=== PATIENT | female | born 1985 | race Caucasian/White ===

== ENCOUNTER 2020-10-15 08:36 | Inpatient (IN) ==
[2020-10-15] MEDS ORDERED: OXYTOCIN 30 UNITS/500 ML BAG IV PRN ×3 (09:13→18:45)
--- NOTE | 2020-10-15 09:27 | History & Physical Report ---
Date of Service October 15, 2020 Assessment & Plan (1) Spontaneous rupture of amniotic membranes: 34 yo at 38,3 wks with SROM at term VSS Afebrile GBS neg FHR reassuring Discussed augmentation with Pitocin, decrease risk of intraamniotic infection, she agreed Continue to monitor Epidural for pain Admission and Anticipated Discharge Date Admission Date: October 15, 2020 History of Present Illness Primary Care Provider: NO PCP 34 yo at 38.3 wks LOF since 0520 am Trickling since then Clear, no blood Contractions started after LOF, every 6-12 min, pain 8/10 +FM's No problems of EFW was 6.5 lb last week in office GBS neg No symptoms of COVID 19 Patient History Social History (Updated 10/15/20 @ 09:25 by Jorge Clark MD) Smoking Status: Never smoker Hx Alcohol Use: No Hx Substance Use: No CAN RECONDITIONER History No h/o STD's Review of Systems All systems reviewed & are unremarkable except as noted in HPI & below Physical Exam Constitutional: WD/WN, vitals as above well developed Comfortable Gastrointestinal (Abdomen): normal bowel sounds, soft, nontender, no hepatosplenomegaly (Enrique 7-8 lb) Genitourinary: normal external appearance OB Exam Abdomen: + vertex Manual OB Exam: + cervical dilation 2 cm, + cervical effacement 70%, + station - 1 and + amniotic fluid (clear, nitrazine+, amnisure +) OB Exam Monitor Tracing: + external uterine monitor used and + category I Results & Data ([facility]) Vital Signs (Past 12 Hours) Vital Signs Pulse BP 10/15/20 09:05 70 111/69
[2020-10-15 09:54] LABS: Hematocrit (blood only) 34.8 % (37-47); Hemoglobin 11.8 g/dL (12.0-16.0); Mean Corpuscular Hemoglobin 28.5 pg (25-34); Mean Corpuscular Hgb Conc 33.9 g/dL (32-36); Mean Corpuscular Volume 84.1 fL (80-100); Mean Platelet Volume 10.2 fL (7.4-10.4); Platelet Count 368 K/uL (130-400); RDW Coefficient of Variation 13.2 % (11.5-14.5); RDW Standard Deviation 40.1 fL (36.4-46.3); Red Blood Count 4.14 M/uL (4.2-5.4); White Blood Count 11.78 K/uL (4.8-10.8)
[2020-10-15] MEDS: LACTATED RINGER'S 1,000 ML IV PRN ×2 (10:34→12:24)
[2020-10-15] MEDS ORDERED: fentaNYL citrate 100 MCG/2 ML VIAL ONE (11:42)
[2020-10-15] MEDS ORDERED: BUPIVACAINE 0.25% 30 ML VIAL ONE (11:42)
[2020-10-15] MEDS ORDERED: SODIUM CHLORIDE 0.9% INJ 10 ML VIAL ONE (11:42)
[2020-10-15] MEDS ORDERED: ePHEDrine sulfate 50 MG/ML AMP ONE (11:42)
[2020-10-15] MEDS ORDERED: fentaNYL 2MCG/ML ROPIVACAINE 1.25MG/ML 100 ML BAG EPI ONE (11:43)
--- NOTE | 2020-10-15 12:36 | Anesthesiology Consultation ---
Date of Service October 15, 2020 Assessment & Plan (1) Encounter for pre-operative examination: Chart Review Chart Review: Patient NOT seen in Pre Admission Testing and Acceptable Risk for Labor Epidural Consults Requested none ASA ASA2 Proposed Anesthesia Anesthesia Type: Labor Epidural Risk / Benefits Reviewed With: PT / POA / Parent / Guardian, Accepts Plan and Informed Consent Obtained History Height/Weight Height: 5 ft 3 in Weight: 95.254 kg Allergies Allergy/AdvReac Type Severity Reaction Status Date / Time morris Allergy Hives Verified 10/15/20 09:31 pollen extracts Allergy Sneezing Verified 10/15/20 09:32 Medications Home Medications Medication Instructions Recorded Confirmed Last Taken prenat.vits,kinga,mhq-fxbx-jnvuk 1 tab PO DAILY 10/15/20 10/15/20 10/14/20 08:00 [ Vitamin] Active Medications Generic Name Dose Route Start Last Admin Trade Name Freq PRN Reason Stop Dose Admin Lactated Ringer's 1,000 mls @ 150 mls/hr 10/15/20 09:13 10/15/20 12:24 Lr IV 10/17/20 09:12 150 mls/hr .[id number] PRN Administration L&D Protocol Protocol Oxytocin 30 units in 500 mls @ 8 mls/hr 10/15/20 09:18 10/15/20 12:05 Pitocin IV 10/17/20 09:17 0.48 units/hr .Q24H PRN 8 mls/hr Labor Induction/Augmentation Titration Protocol 0.48 UNITS/HR NPO Date Last Intake of Fluids: 10/15/20 Time Last Intake of Fluids: 11:00 Date Last Intake of Solids: 10/14/20 Time Last Intake of Solids: 22:00 Past Medical History Medical History No pertinent past medical history Exercise / Class Metabolic Activity II 4-5 Yardwork/Stairs/Walk up hill Past Surgical History Surgical History H/O breast augmentation 2011 Past Anesthesia History No Hx of Anesthesia Complications and No Family Hx of Anesthesia Complications History of PONV No Hx of PONV and No Hx of Motion Sickness Social History Smoking Status: Never smoker Hx Alcohol Use: No Hx Substance Use: No Physical Exam Vital Signs Last Vital Signs Temp 37.1 C 10/15/20 09:17 Pulse 86 10/15/20 12:34 Resp 20 10/15/20 09:17 BP 113/68 10/15/20 12:34 Pulse Ox 81 L 10/15/20 12:29 ENMT Mouth: no dentition abnormality Thyromental Distance: > or= 3.5 Finger Breadths Mallampati Class: II Neck normal visual inspection Respiratory normal respiratory effort Auscultation: lungs clear to auscultation bilaterally Cardiovascular Rate/Rhythm: regular rate and regular rhythm Psychiatric Orientation: alert Testing Laboratory Results 10/15/20 09:39
[2020-10-15] MEDS ORDERED: diphenhydrAMINE 50 MG/ML VIAL IV PRN (12:37)
[2020-10-15] MEDS ORDERED: ONDANSETRON INJ 2 MG/ML 2 ML VIAL IV PRN (12:37)
[2020-10-15] MEDS ORDERED: NALOXONE HCL 0.4 MG/1 ML VIAL/CARP IV PRN (12:37)
[2020-10-15] MEDS ORDERED: fentaNYL 2MCG/ML ROPIVACAINE 1.25MG/ML 100 ML BAG EPI PRN (12:37)
[2020-10-15] MEDS ORDERED: ePHEDrine sulfate 50 MG/ML AMP IV PRN (12:37)
[2020-10-15] MEDS ORDERED: NALOXONE HCL 1 MG in SODIUM CHLORIDE 0.9% 1000ML 1,000 ML IV PRN (12:37)
--- NOTE | 2020-10-15 16:36 | Obstetrical Progress Note ---
Date of Service October 15, 2020 Assessment & Plan Admission and Anticipated Discharge Date Admission Date: October 15, 2020 Subjective Late entry from 14:45 Patient is reevaluated Received epidural and comfortable now VSS Afebrile FHR categ I VE; 6-7/ 90%/ 0 Ctxs q 1-5 min, pitocin is at 12 miu/min Continue to monitor Anticipate Results & Data ([facility]) Vital Signs (Past 12 Hours) Vital Signs Temp Pulse Resp BP Pulse Ox 10/15/20 16:31 20 10/15/20 16:29 76 95 10/15/20 16:28 74 108/58 L 10/15/20 16:24 73 96 10/15/20 16:23 71 86 L 10/15/20 16:19 70 92 10/15/20 16:16 20 10/15/20 16:14 81 91 10/15/20 16:13 69 102/63 10/15/20 16:11 66 90 10/15/20 16:09 66 92 10/15/20 16:04 77 91 10/15/20 16:01 20 10/15/20 15:59 67 93 10/15/20 15:58 73 105/62 10/15/20 15:54 71 92 10/15/20 15:49 76 93 10/15/20 15:46 20 10/15/20 15:44 70 92 10/15/20 15:43 73 112/60 10/15/20 15:39 69 92 10/15/20 15:34 74 93 10/15/20 15:31 20 10/15/20 15:29 72 93 10/15/20 15:28 68 103/65 10/15/20 15:24 68 92 10/15/20 15:19 72 92 10/15/20 15:16 20 10/15/20 15:14 71 111/59 L 92 10/15/20 15:09 69 92 10/15/20 15:04 71 92 10/15/20 15:00 36.8 C 10/15/20 14:59 65 92 10/15/20 14:57 65 94/56 L 10/15/20 14:54 64 92 10/15/20 14:49 69 93 10/15/20 14:44 60 94 10/15/20 14:43 60 98/57 L 10/15/20 14:39 74 93 10/15/20 14:34 67 92 10/15/20 14:29 66 92 10/15/20 14:28 66 101/61 10/15/20 14:24 72 93 10/15/20 14:19 62 92 10/15/20 14:15 18 10/15/20 14:14 64 92 10/15/20 14:12 68 96/58 L 10/15/20 14:09 67 91 10/15/20 14:04 65 92 10/15/20 13:59 72 93 10/15/20 13:57 63 102/60 10/15/20 13:54 66 93 10/15/20 13:49 61 92 10/15/20 13:45 20 10/15/20 13:44 67 93 10/15/20 13:43 68 104/74 10/15/20 13:39 67 93 10/15/20 13:34 78 94 10/15/20 13:31 20 10/15/20 13:29 66 96 10/15/20 13:28 64 100/62 10/15/20 13:24 61 92 10/15/20 13:19 63 92 10/15/20 13:14 65 93 10/15/20 13:13 63 98/62 L 10/15/20 13:09 66 94 10/15/20 13:08 37.0 C 10/15/20 13:05 20 10/15/20 13:04 68 93 10/15/20 12:59 68 94 10/15/20 12:58 66 94 10/15/20 12:57 67 100/58 L 10/15/20 12:54 67 95 10/15/20 12:49 69 20 96 10/15/20 12:44 82 97 10/15/20 12:40 88 100/58 L 10/15/20 12:39 81 98 10/15/20 12:36 20 10/15/20 12:34 83 113/68 97 10/15/20 12:32 106 H 113/72 10/15/20 12:30 78 112/66 10/15/20 12:29 86 81 L 10/15/20 12:28 72 126/75 10/15/20 12:24 82 87 L 10/15/20 12:23 70 91 10/15/20 12:19 62 97 10/15/20 11:36 67 130/78 10/15/20 11:10 36.9 C 10/15/20 10:36 63 122/73 10/15/20 09:17 37.1 C 20 10/15/20 09:05 70 111/69
[2020-10-15] MEDS ORDERED: NURSING L&D Epidural Breakthrough Pain Update ONE (16:54)
--- NOTE | 2020-10-15 17:52 | Obstetrical Progress Note ---
Date of Service October 15, 2020 Assessment & Plan Admission and Anticipated Discharge Date Admission Date: October 15, 2020 Subjective Patient was reevaluated VE was 10/100%/+2, small caput, Patient had urge to push FHR had been categ I Had deceleration after contractions, pitocin was off and Nasal O2 and IVF bolus were started FHR recovered Has been pushing for the last 15 minutes Caput visible at introitus Continue to monitor closely Anticipate Results & Data ([facility]) Vital Signs (Past 12 Hours) Vital Signs Temp Pulse Resp BP Pulse Ox 10/15/20 17:49 84 99 10/15/20 17:44 66 91/54 L 99 10/15/20 17:39 81 100 10/15/20 17:34 58 L 96 10/15/20 17:29 52 L 93 10/15/20 17:28 56 L 95/50 L 10/15/20 17:24 61 95 10/15/20 17:19 69 96 10/15/20 17:14 68 97 10/15/20 17:13 105 H 101/56 L 10/15/20 17:09 74 96 10/15/20 17:04 74 97 10/15/20 16:59 69 97 10/15/20 16:58 76 110/68 10/15/20 16:54 70 96 10/15/20 16:49 71 97 10/15/20 16:46 20 10/15/20 16:44 65 97 10/15/20 16:43 66 113/68 10/15/20 16:39 75 96 10/15/20 16:34 76 96 10/15/20 16:31 20 10/15/20 16:29 76 95 10/15/20 16:28 74 108/58 L 10/15/20 16:24 73 96 10/15/20 16:23 71 86 L 10/15/20 16:19 70 92 10/15/20 16:16 20 10/15/20 16:14 81 91 10/15/20 16:13 69 102/63 10/15/20 16:11 66 90 10/15/20 16:09 66 92 10/15/20 16:04 77 91 10/15/20 16:01 20 10/15/20 15:59 67 93 10/15/20 15:58 73 105/62 10/15/20 15:54 71 92 10/15/20 15:49 76 93 10/15/20 15:46 20 10/15/20 15:44 70 92 10/15/20 15:43 73 112/60 10/15/21 15:39 69 92 2021 15:34 74 93 10/15/20 15:31 20 10/15/20 15:29 72 93 10/15/20 15:28 68 103/65 10/15/20 15:24 68 92 10/15/20 15:19 72 92 10/15/20 15:16 20 10/15/20 15:14 71 111/59 L 92 10/15/20 15:09 69 92 10/15/20 15:04 71 92 10/15/20 15:00 36.8 C 10/15/20 14:59 65 92 10/15/20 14:57 65 94/56 L 10/15/20 14:54 64 92 10/15/20 14:49 69 93 10/15/20 14:44 60 94 10/15/20 14:43 60 98/57 L 10/15/20 14:39 74 93 10/15/20 14:34 67 92 10/15/20 14:29 66 92 10/15/20 14:28 66 101/61 10/15/20 14:24 72 93 10/15/20 14:19 62 92 10/15/20 14:15 18 10/15/20 14:14 64 92 10/15/20 14:12 68 96/58 L 10/15/20 14:09 67 91 10/15/20 14:04 65 92 10/15/20 13:59 72 93 10/15/20 13:57 63 102/60 10/15/21 13:54 66 93 10/15/21 13:49 61 92 21 13:45 20 10/15/20 13:44 67 93 20/ 13:43 68 104/74 20/21 13:39 67 93 20/21 13:34 78 94 10/15/20 13:31 20 20 13:29 66 96 20 13:28 64 100/62 20/21 13:24 61 92 20 13:19 63 92 10/15/20 13:14 65 93 10/15/20 13:13 63 98/62 L 10/15/20 13:09 66 94 10/15/20 13:08 37.0 C 10/15/20 13:05 20 10/15/20 13:04 68 93 10/15/20 12:59 68 94 10/15/20 12:58 66 94 10/15/20 12:57 67 100/58 L 10/15/20 12:54 67 95 10/15/20 12:49 69 20 96 10/15/20 12:44 82 97 10/15/20 12:40 88 100/58 L 10/15/20 12:39 81 98 10/15/20 12:36 20 10/15/20 12:34 83 113/68 97 10/15/20 12:32 106 H 113/72 10/15/20 12:30 78 112/66 10/15/20 12:29 86 81 L 10/15/20 12:28 72 126/75 10/15/20 12:24 82 87 L 10/15/20 12:23 70 91 10/15/20 12:19 62 97 10/15/20 11:36 67 130/78 10/15/20 11:10 36.9 C 10/15/20 10:36 63 122/73 10/15/20 09:17 37.1 C 20 10/15/20 09:05 70 111/69
[2020-10-15] MEDS ORDERED: MINERAL OIL 30 ML UDC ONE (17:55)
[2020-10-15] MEDS ORDERED: MEASLES, MUMPS & RUBELLA VIRUS VIAL SQ ONE (18:45)
[2020-10-15] MEDS ORDERED: DIPHTHERIA/TETANUS/PERTUSSIS 0.5 ML SYR/VIAL IM ONE (18:45)
[2020-10-15] MEDS ORDERED: SUPERCREAM 0.870% 15 GM JAR EXT PRN (18:45)
[2020-10-15] MEDS ORDERED: ACETAMINOPHEN 325 MG TAB PO PRN (18:45)
[2020-10-15] MEDS ORDERED: HYDROCORTISONE ACETATE 25 MG SUPP PR PRN (18:45)
[2020-10-15] MEDS ORDERED: bisacodyL 10 MG SUPP PR PRN (18:45)
[2020-10-15] MEDS ORDERED: BENZOCAINE 20% AER SPR 82.5 GM CAN EXT PRN (18:45)
--- NOTE | 2020-10-15 20:24 | Anesthesiology Progress Note ---
Date of Service October 15, 2020 Anesthesia Post Procedure Vital Signs Vital Signs: Temp Pulse Resp BP Pulse Ox 10/15/20 20:12 83 129/59 L 10/15/20 19:58 93 H 122/57 L 10/15/20 19:45 18 10/15/20 19:43 91 H 111/53 L 10/15/20 19:30 16 10/15/20 19:27 90 128/63 10/15/20 19:15 18 10/15/20 18:58 36.8 C 97 H 18 117/74 10/15/20 18:45 91 H 20 106/65 10/15/20 18:43 83 100/57 L 10/15/20 18:34 68 112/56 L 10/15/20 18:28 139 H 159/122 H 10/15/20 18:14 84 97 10/15/20 18:09 105 H 99 10/15/20 18:04 91 H 99 10/15/20 17:59 75 99 10/15/20 17:58 73 95/52 L 10/15/20 17:54 96 H 98 10/15/20 17:49 84 99 10/15/20 17:44 66 91/54 L 99 10/15/20 17:39 81 100 10/15/20 17:34 58 L 96 10/15/20 17:29 52 L 93 10/15/20 17:28 56 L 95/50 L 10/15/20 17:24 61 95 10/15/20 17:19 69 96 10/15/20 17:14 68 97 10/15/20 17:13 105 H 101/56 L 10/15/20 17:10 36.7 C 20 10/15/20 17:09 74 96 10/15/20 17:04 74 97 10/15/20 16:59 69 97 10/15/20 16:58 76 110/68 10/15/20 16:54 70 96 10/15/20 16:49 71 97 10/15/20 16:46 20 10/15/20 16:44 65 97 10/15/20 16:43 66 113/68 10/15/20 16:39 75 96 10/15/20 16:34 76 96 10/15/20 16:31 20 10/15/20 16:29 76 95 10/15/20 16:28 74 108/58 L 10/15/20 16:24 73 96 10/15/20 16:23 71 86 L 10/15/20 16:19 70 92 10/15/20 16:16 20 10/15/20 16:14 81 91 10/15/20 16:13 69 102/63 10/15/20 16:11 66 90 10/15/20 16:09 66 92 10/15/20 16:04 77 91 10/15/20 16:01 20 10/15/20 15:59 67 93 10/15/20 15:58 73 105/62 10/15/20 15:54 71 92 10/15/20 15:49 76 93 10/15/20 15:46 20 10/15/20 15:44 70 92 10/15/20 15:43 73 112/60 10/15/20 15:39 69 92 10/15/20 15:34 74 93 10/15/20 15:31 20 10/15/20 15:29 72 93 10/15/20 15:28 68 103/65 10/15/20 15:24 68 92 10/15/20 15:19 72 92 10/15/20 15:16 20 10/15/20 15:14 71 111/59 L 92 10/15/20 15:09 69 92 10/15/20 15:04 71 92 10/15/20 15:00 36.8 C 10/15/20 14:59 65 92 10/15/20 14:57 65 94/56 L 10/15/20 14:54 64 92 10/15/20 14:49 69 93 10/15/20 14:44 60 94 10/15/20 14:43 60 98/57 L 10/15/20 14:39 74 93 10/15/20 14:34 67 92 10/15/20 14:29 66 92 10/15/20 14:28 66 101/61 10/15/20 14:24 72 93 10/15/20 14:19 62 92 10/15/20 14:15 18 10/15/20 14:14 64 92 10/15/20 14:12 68 96/58 L 10/15/20 14:09 67 91 10/15/20 14:04 65 92 10/15/20 13:59 72 93 10/15/20 13:57 63 102/60 10/15/20 13:54 66 93 10/15/20 13:49 61 92 10/15/20 13:45 20 10/15/20 13:44 67 93 10/15/20 13:43 68 104/74 10/15/20 13:39 67 93 10/15/20 13:34 78 94 10/15/20 13:31 20 10/15/20 13:29 66 96 10/15/20 13:28 64 100/62 10/15/20 13:24 61 92 10/15/20 13:19 63 92 10/15/20 13:14 65 93 10/15/20 13:13 63 98/62 L 10/15/20 13:09 66 94 10/15/20 13:08 37.0 C 10/15/20 13:05 20 10/15/20 13:04 68 93 10/15/20 12:59 68 94 10/15/20 12:58 66 94 10/15/20 12:57 67 100/58 L 10/15/20 12:54 67 95 10/15/20 12:49 69 20 96 10/15/20 12:44 82 97 10/15/20 12:40 88 100/58 L 10/15/20 12:39 81 98 10/15/20 12:36 20 10/15/20 12:34 83 113/68 97 10/15/20 12:32 106 H 113/72 10/15/20 12:30 78 112/66 10/15/20 12:29 86 81 L 10/15/20 12:28 72 126/75 10/15/20 12:24 82 87 L 10/15/20 12:23 70 91 10/15/20 12:19 62 97 10/15/20 11:36 67 130/78 10/15/20 11:10 36.9 C 10/15/20 10:36 63 122/73 10/15/20 09:17 37.1 C 20 10/15/20 09:05 70 111/69 Pain Intensity Abdomen: Pain Intensity: 3 Notes Mental Status: alert / awake / arousable Nausea / Vomiting: adequately controlled Pain: adequately controlled Airway Patency, RR, SpO2: stable & adequate BP & HR: stable & adequate Hydration State: stable & adequate Neuraxial Anesthesia: was administered and sensory block is resolving Anesthetic Complications: no major complications apparent and Pt Satisfied with anesthetic care
--- NOTE | 2020-10-15 21:49 | Delivery Summary ---
DATE OF OPERATION: 10/15/2020 TIME OF DELIVERY OF BABY: 6:11 p.m. DETAILS OF DELIVERY: The patient was found to be fully dilated and desired to push. She pushed for about half an hour and delivered the head without difficulty. Shoulders were delivered with minimal traction. Baby was handed off to the mother where mouth and nose were suctioned. Cord was clamped x2 and cut. Baby was vigorously crying and moving and then cord blood was obtained. Vagina and perineum were checked for lacerations. There was a small second-degree perineal laceration, which was confirmed with rectal exam. Excellent sphincter tone was noted and gloves were changed. This was repaired with 2-0 Vicryl in a running locked fashion and there was oozing on the top, which was controlled with lymyxv-sr-yxtif stitches. The placenta was found to be in the vagina, delivered spontaneous as intact and complete. Uterus was explored, found to be empty. Lower segment was cleared of all clots and debris. EBL was 200 mL. Fundus was firm. There was a small oozing on the repair, which was controlled with nuifkj-jf-wwace stitch and Aaliyah powder. Excellent hemostasis was achieved. Mom and baby tolerated the procedure well. Sponge, needle, instrument count was correct x2. Baby was a viable female , Apgars 9/9, weight is 2830 gr. No complications happened and I was present during whole procedure. I attest to the content of the Intraoperative Record and any orders documented therein. Any exceptions are noted below. MTDD
[2020-10-15] MEDS: DOCUSATE SODIUM 100 MG CAP PO SCH (21:51)
[2020-10-16] MEDS: IBUPROFEN 600 MG TAB PO PRN ×2 (03:40→15:39)
[2020-10-16 06:28] LABS: Hematocrit (blood only) 29.5 % (37-47); Hemoglobin 9.9 g/dL (12.0-16.0); Mean Corpuscular Hemoglobin 28.4 pg (25-34); Mean Corpuscular Hgb Conc 33.6 g/dL (32-36); Mean Corpuscular Volume 84.8 fL (80-100); Mean Platelet Volume 10.2 fL (7.4-10.4); Platelet Count 321 K/uL (130-400); RDW Coefficient of Variation 13.1 % (11.5-14.5); RDW Standard Deviation 39.9 fL (36.4-46.3); Red Blood Count 3.48 M/uL (4.2-5.4); White Blood Count 13.96 K/uL (4.8-10.8)
[2020-10-16] MEDS ORDERED: FERROUS SULFATE 325 MG TAB PO SCH (08:00)
[2020-10-16] MEDS: PRENATAL VITAMIN 1 TAB PO SCH (09:12)
[2020-10-16] MEDS: DOCUSATE SODIUM 100 MG CAP PO SCH ×2 (09:13→20:46)
--- NOTE | 2020-10-16 13:09 | Obstetrical Progress Note ---
Date of Service October 16, 2020 Assessment & Plan Admission and Anticipated Discharge Date Admission Date: October 15, 2020 Subjective Patient is seen and examined. She feels well, no complaints. Ambulating without dizziness Voiding without difficulty Tolerating regular diet with out N&V Bleeding is minimal No fever/ chills/ CP/ SOB/ N&V/ Leg pain Breast feeding without problems Vital Signs Temp Pulse Resp BP Pulse Ox 10/16/20 11:15 36.7 C 88 14 108/73 98 10/16/20 08:47 37 C 82 16 104/72 98 10/16/20 03:30 36.9 C 76 20 101/67 99 Lab Results 10/15/20 10/15/20 10/15/20 Range/Units 09:39 Unknown Unknown WBC 11.78 H (4.8-10.8) K/uL RBC 4.14 L (4.2-5.4) M/uL Hgb 11.8 L (12.0-16.0) g/dL Hct 34.8 L (37-47) % MCV 84.1 (80-100) fL MCH 28.5 (25-34) pg MCHC 33.9 (32-36) g/dL RDW Std Deviation 40.1 (36.4-46.3) fL RDW Coeff of Marques 13.2 (11.5-14.5) % Plt Count 368 (130-400) K/uL MPV 10.2 (7.4-10.4) fL COVID-19 Eval Order Covid19 [facility] SARS-CoV-2, RNA, NAAT NEGATIVE (NEGATIVE) 10/16/20 Range/Units 06:13 WBC 13.96 H (4.8-10.8) K/uL RBC 3.48 L (4.2-5.4) M/uL Hgb 9.9 L (12.0-16.0) g/dL Hct 29.5 L (37-47) % MCV 84.8 (80-100) fL MCH 28.4 (25-34) pg MCHC 33.6 (32-36) g/dL RDW Std Deviation 39.9 (36.4-46.3) fL RDW Coeff of Marques 13.1 (11.5-14.5) % Plt Count 321 (130-400) K/uL MPV 10.2 (7.4-10.4) fL COVID-19 Eval Order SARS-CoV-2, RNA, NAAT (NEGATIVE) PE: General: Alert, orientedx3, NAD Abd: soft, NT, fundus firm, below Umbilicus Perineum intact, Lochia rubra minimal Ext; NT, no edema AP: 34 yo s/p , ppd# 1 VSS Afebrile doing well Continue routine care All questions were answered D/C home tomorrow Results & Data ([facility]) Vital Signs (Past 12 Hours) Vital Signs Temp Pulse Resp BP Pulse Ox 10/16/20 11:15 36.7 C 88 14 108/73 98 10/16/20 08:47 37 C 82 16 104/72 98 10/16/20 03:30 36.9 C 76 20 101/67 99
[2020-10-16] MEDS ORDERED: bisacodyL 5 MG TABEC PO SCH (20:00)
[2020-10-16] MEDS: FERROUS SULFATE 325 MG TAB PO SCH (20:46)
[2020-10-17] MEDS: IBUPROFEN 600 MG TAB PO PRN (01:20)
[2020-10-17 06:35] LABS: Hematocrit (blood only) 31.6 % (37-47); Hemoglobin 10.5 g/dL (12.0-16.0)
--- NOTE | 2020-10-17 08:27 | Obstetrical Progress Note ---
Date of Service October 17, 2020 Assessment & Plan Admission and Anticipated Discharge Date Admission Date: October 15, 2020 Subjective PPD#2 doing well passing gas tolerating diet out of bed Physical Exam Constitutional: WD/WN, vitals as above comfortable abdomen soft and non- tender for d/c Results & Data ([facility]) Vital Signs (Past 12 Hours) Vital Signs Temp Pulse Resp BP Pulse Ox 10/17/20 00:05 36.7 C 79 17 112/74 98 Laboratory Results Laboratory Results - last 48 hr 10/15/20 10/15/20 10/15/20 09:39 Unknown Unknown WBC 11.78 H RBC 4.14 L Hgb 11.8 L Hct 34.8 L MCV 84.1 MCH 28.5 MCHC 33.9 RDW Std Deviation 40.1 RDW Coeff of Marques 13.2 Plt Count 368 MPV 10.2 COVID-19 Eval [facility] SARS-CoV-2, RNA, NAAT NEGATIVE 10/16/20 10/17/20 06:13 05:53 WBC 13.96 H RBC 3.48 L Hgb 9.9 L 10.5 L Hct 29.5 L 31.6 L MCV 84.8 MCH 28.4 MCHC 33.6 RDW Std Deviation 39.9 RDW Coeff of Marques 13.1 Plt Count 321 MPV 10.2 COVID-19 Eval Order SARS-CoV-2, RNA, NAAT
[2020-10-17] MEDS: DOCUSATE SODIUM 100 MG CAP PO SCH (08:34)
[2020-10-17] MEDS: PRENATAL VITAMIN 1 TAB PO SCH (08:34)
[2020-10-17] MEDS: FERROUS SULFATE 325 MG TAB PO SCH (08:34)
== END 2020-10-17 11:00 | disposition home or self-care (01) | DRG 807 ==
LOC: OPB 08:36 → 4S1 08:51 → 4S2 21:19 → 4N 10-16 12:16